=== PATIENT | female | born 1990 | race Caucasian/White ===

== ENCOUNTER 2021-12-30 17:07 | Emergency (ER) | payer MEDICAID ==
[~2021-12-30] VITALS: Ht 152.4 cm; Wt 86.2 kg
--- NOTE | 2021-12-30 17:30 | NUR ---
Patient ambulatory, alert and oriented x4 complaints of right kirkpatrick pain 6/10 with history of injury yesterday. Denies nausea/vomiting. Vitals stable.
--- NOTE | 2021-12-30 17:45 | NUR ---
MD at bedside, medical screening exam in process.
--- NOTE | 2021-12-30 18:50 | NUR ---
Patient discharged to home in stable condition. Written and verbal after care instructions given. Patient verbalizes understanding of instructions. Stressed follow up or return to ER for worsening s/s.
[2021-12-30 19:24] VITALS: BP 129/80
== END 2021-12-30 18:35 | disposition home or self-care (01) ==
LOC: ER 17:13
DX: S80.11XA Contusion of right lower leg, initial encounter (principal); W22.8XXA Striking against or struck by other objects, initial encounter; Y92.89 Other specified places as the place of occurrence of the external cause; Z88.6 Allergy status to analgesic agent; Z88.8 Allergy status to other drugs, medicaments and biological substances
CPT/HCPCS: A4663